=== PATIENT | male | born 1965 | race African-American/Black ===

== ENCOUNTER 2019-10-10 15:09 | Emergency (ER) | payer SELFPAY ==
[2019-10-10] MEDS ORDERED: 0.9 % SODIUM CHLORIDE 1,000 ML IV ONE (15:11)
--- NOTE | 2019-10-10 15:57 | ED Physician Documentation ---
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 Pt has been feeling fever/chills, malaise, all-over muscle aches x 3 days. No n/v. No cp. Temp on presentation is 100.0.) - ROS CONST: fever, chills, other (malaise) EYES/ENT: sore throat CVS/RESP: none GI/: none MS/SKIN/LYMPH: other (all-over muscle ache) - PAST HX Past History: other (hernia repair) Allergies/Adverse Reactions: Allergies Allergy/AdvReac Type Severity Reaction Status Date / Time No Known Allergies Allergy Verified 10/10/19 15:49 Home Medications: Ambulatory Orders Medication Instructions Recorded NK 10/10/19 - SOCIAL HX Smoking History: non-smoker - FAMILY HX Family History: No - VITAL SIGNS Vital Signs: Vital Signs Temp Pulse Resp BP Pulse Ox 100.0 F H 104 H 20 115/88 98 10/10/19 15:10 10/10/19 15:10 10/10/19 15:10 10/10/19 15:10 10/10/19 15:10 - REVIEWED ASSESSMENTS Nursing Assessment Reviewed: Yes Vitals Reviewed: Yes Progress - Progress Progress: Rapid Strep - neg Influenza A - pos Insluenza B - neg NS 1 L IVF Toradol 15 mg IV ED Results Lab/Radiology - Lab Results Lab Results: Lab Results 10/10/19 15:30 WBC 3.50 K/ul L K/ul (4.00-12.00) RBC 4.29 M/ul M/ul (3.90-5.20) Hgb 13.6 g/dL g/dL (12.0-18.0) Hct 39.8 % % (37.0-53.0) MCV 93.0 fl fl (80.0-100.0) MCH 31.6 pg pg (28.0-34.0) MCHC 34.1 g/dL g/dL (30.0-36.0) RDW 9.9 % L % (11.3-14.3) Plt Count 162 K/mm3 K/mm3 (130-400) Neut % (Auto) Pending Lymph % (Auto) Pending [place] % (Auto) Pending Eos % (Auto) Pending Baso % (Auto) Pending Neut # (Auto) Pending Lymph # (Auto) Pending [place] # (Auto) Pending Eos # (Auto) Pending Baso # (Auto) Pending - Orders Orders: ED Orders Category Date Time Status Place IV Lock 1T Care 10/10/19 15:11 Active CBC/PLATELET/DIFF Routine Lab 10/10/19 15:30 Results CMP [CMP] Routine Lab 10/10/19 15:30 Received INFLUENZA A&B Stat Lab 10/10/19 Uncollected Rapid Strep [GRP A STREP SCREEN] Stat Lab 10/10/19 Ordered 0.9 % Sodium Chloride [Normal Saline] 1,000 ml Med 10/10/19 15:11 Active IV NOW General Adult Physical Exam - PHYSICAL EXAM GENERAL APPEARANCE: moderate distress EENT: pharynx normal NECK: normal inspection RESPIRATORY: no resp distress, chest non-tender, breath sounds normal CVS: reg rate & rhythm, heart sounds normal ABDOMEN: soft, no organomegaly, normal bowel sounds BACK: normal inspection SKIN: warm/dry, normal color EXTREMITIES: non-tender, normal range of motion, no evidence of injury NEURO: oriented X3, motor nml, sensation nml Discharge Clincal Impression: Influenza A Referrals: Primary Doctor,No [Primary Care Provider] - Condition: Stable Disposition: 01 HOME, SELF-CARE Decision to Admit: NO Decision Time: 16:45
[2019-10-10] MEDS ORDERED: KETOROLAC TROMETHAMINE 15 MG/ML VIAL IV ONE (16:00)
[2019-10-10 16:04] LABS: eGFR (Non-African) > 60
[2019-10-10] MEDS ORDERED: KETOROLAC TROMETHAMINE 30 MG/1ML VIAL ONE (16:10)
[2019-10-10 16:48] VITALS: BP 135/86
[2019-10-11 07:26] LABS: NEUTROPHILS # 1.5 # k/uL (1.4-7.7)
[2019-10-11 07:27] LABS: SEGMENTED NEUTROPHILS % 41 % (39-79)
== END 2019-10-10 16:47 | disposition home or self-care (01) ==
LOC: ED 15:09
DX: J10.1 Influenza due to other identified influenza virus with other respiratory manifestations (principal)
CPT/HCPCS: 80053; 85025; 87070; 87400; 87880; 96361; 96374; 99282; 99284; J7030; S1016

== ENCOUNTER 2019-10-10 19:00 | Outpatient (CLI) | payer SELFPAY ==
[2019-10-10 16:48] VITALS: BP 135/86
== END 2019-10-10 19:05 ==
LOC: LAB 19:00
PROVIDERS: ATTEND Emergency Medicine
DX: Z53.9 Procedure and treatment not carried out, unspecified reason (principal)